=== PATIENT | female | born 1965 | race African-American/Black ===

== ENCOUNTER 2020-10-31 10:27 | Inpatient (IN) | payer MEDICARE, OTHER ==
[~2020-10-31] VITALS: Ht 172.7 cm; Wt 113.4 kg
[2020-10-31] MEDS ORDERED: ASPIRIN 325 MG TAB PO ONE (11:00)
[2020-10-31 11:05] LABS: BASOPHILS % 0.4 % (0.0-1.0); EOSINOPHILS # (AUTO) 0.1 (0.0-0.4); EOSINOPHILS % 1.4 % (0.0-6.0); HEMATOCRIT 32.2 % (34.2-44.1); HEMOGLOBIN 9.6 g/dL (12.0-16.0); LYMPHOCYTES # (AUTO) 1.7 (1.0-3.2); LYMPHOCYTES % 22.8 % (18.0-39.1); MEAN CORPUSCULAR HEMOGLOBIN 24.7 pg (28-32); MEAN CORPUSCULAR HGB CONC 29.8 g/dL (31-35); MONOCYTES # (AUTO) 0.6 (0.2-0.8); MONOCYTES % 7.3 % (4.4-11.3); NEUTROPHILS # (AUTO) 5.2 (2.1-6.9); NEUTROPHILS % 67.6 % (38.7-80.0); PLATELET COUNT 345 x10e3/uL (140-360); RED BLOOD COUNT 3.88 x10e6/uL (3.6-5.1); RED CELL DISTRIBUTION WIDTH 15.9 % (11.7-14.4)
[2020-10-31 11:25] LABS: INR 0.92; PROTHROMBIN TIME 12.9 seconds (11.9-14.5)
[2020-10-31 11:40] LABS: ALBUMIN 3.1 g/dL (3.5-5.0); ALBUMIN/GLOBULIN RATIO 0.7 (0.8-2.0); ANION GAP 16.7 mmol/L (8-16); CALCIUM 8.9 mg/dL (8.4-10.2); CREATININE, SERUM 1.54 mg/dL (0.57-1.11); POTASSIUM 4.7 mmol/L (3.5-5.1)
[2020-10-31] MEDS ORDERED: IOPAMIDOL 370 MG/ML 200 ML INFUS..BTL INJ ONE (11:46)
[2020-10-31] MEDS ORDERED: SODIUM CHLORIDE 0.9% 100 ML ONE (11:46)
[2020-10-31] MEDS ORDERED: INSULIN REGULAR, HUMAN 100 UNIT/1 ML 3ML VIAL SQ ONE (14:15)
[2020-10-31] MEDS ORDERED: ASPIRIN 81 MG CHEW TAB ONE (14:30)
[2020-10-31 15:00] VITALS: BP_SYST 145; BP_SYST 148; BP_DIAS 59; BP_DIAS 84
[2020-10-31 15:55] VITALS: BP 144/80
[2020-10-31] MEDS ORDERED: ASPIRIN 81 MG CHEW TAB PO ONE (16:20)
[2020-10-31] MEDS ORDERED: DEXTROSE 50% SYRINGE 50 ML IV PRN (17:15)
[2020-10-31] MEDS ORDERED: MILK OF MA2400 MG/10 PO (19:11)
[2020-10-31] MEDS ORDERED: SENNA LAX8.6 MG PO (19:11)
[2020-10-31] MEDS ORDERED: ANTACID SUSPEN PO (19:11)
[2020-10-31] MEDS ORDERED: ALOGLIPTIN25 MG PO (19:11)
[2020-10-31] MEDS ORDERED: DOCUSATE SODIU100 MG PO (19:11)
[2020-10-31] MEDS ORDERED: RISPERIDONE1 MG PO ×2 (19:11)
[2020-10-31] MEDS ORDERED: LANTUS 3ML100 UNITS/ SC ×2 (19:11)
[2020-10-31] MEDS ORDERED: METFORMIN HCL500 MG PO (19:11)
[2020-10-31] MEDS ORDERED: BENZTROPINE MESY1 MG PO (19:11)
[2020-10-31] MEDS ORDERED: ZYPREXA10 MG PO (19:11)
[2020-10-31] MEDS ORDERED: TRICOR145 MG PO (19:11)
[2020-10-31] MEDS ORDERED: LEVSIN0.125 MG PO (19:11)
[2020-10-31] MEDS ORDERED: HYDRALAZINE HCL25 MG PO (19:11)
[2020-10-31] MEDS ORDERED: DULCOLAX10 MG PR (19:11)
[2020-10-31] MEDS ORDERED: ASPIRIN325 MG PO (19:11)
[2020-10-31] MEDS ORDERED: LEVOTHYROXINE50 MCG PO (19:11)
[2020-10-31] MEDS ORDERED: OMEPRAZOLE40 MG PO (19:11)
[2020-10-31] MEDS ORDERED: ZYPREXA5 MG PO (19:11)
[2020-10-31] MEDS ORDERED: MELATONIN3 MG PO (19:11)
[2020-10-31] MEDS ORDERED: TRAZODONE HCL100 MG PO (19:11)
[2020-10-31] MEDS ORDERED: GABAPENTIN300 MG PO (19:11)
[2020-10-31] MEDS ORDERED: ISOSORBIDE MONO30 MG PO (19:11)
[2020-10-31] MEDS ORDERED: SENNA8.6 MG PO (19:11)
[2020-10-31] MEDS ORDERED: ATORVASTATIN CA10 MG PO (19:11)
[2020-10-31] MEDS ORDERED: INSULIN LI100 UNIT/1 SC (19:11)
[2020-10-31] MEDS ORDERED: METOPROLOL TART50 MG PO (19:11)
[2020-10-31] MEDS ORDERED: LITHOBID300 MG PO (19:11)
[2020-10-31 20:00] VITALS: BP 150/66
[2020-10-31 20:06] LABS: CHOL/HDL RATIO 4.6 (3.0-3.6)
[2020-10-31 20:55] VITALS: BP 150/66
[2020-10-31] MEDS: INSULIN REGULAR, HUMAN 100 UNIT/1 ML 3ML VIAL SQ SCH (21:00)
[2020-10-31] MEDS: ATORVASTATIN 40 MG TAB PO SCH (21:00)
[2020-11-01] VITALS (10 sets, daily range): BP systolic 115–159; BP diastolic 61–80
[2020-11-01 05:28] LABS: BASOPHILS % 0.5 % (0.0-1.0); EOSINOPHILS # (AUTO) 0.1 (0.0-0.4); HEMATOCRIT 29.9 % (34.2-44.1); HEMOGLOBIN 8.9 g/dL (12.0-16.0); LYMPHOCYTES # (AUTO) 1.6 (1.0-3.2); LYMPHOCYTES % 25.7 % (18.0-39.1); MEAN CORPUSCULAR HEMOGLOBIN 25.3 pg (28-32); MEAN CORPUSCULAR HGB CONC 29.8 g/dL (31-35); MEAN CORPUSCULAR VOLUME 84.9 fL (81-99); MONOCYTES # (AUTO) 0.4 (0.2-0.8); MONOCYTES % 6.8 % (4.4-11.3); NEUTROPHILS # (AUTO) 3.9 (2.1-6.9); NEUTROPHILS % 64.5 % (38.7-80.0); PLATELET COUNT 260 x10e3/uL (140-360); RED BLOOD COUNT 3.52 x10e6/uL (3.6-5.1); RED CELL DISTRIBUTION WIDTH 15.9 % (11.7-14.4)
[2020-11-01 05:54] LABS: ANION GAP 14.4 mmol/L (8-16); CALCIUM 9.5 mg/dL (8.4-10.2); CREATININE, SERUM 1.64 mg/dL (0.57-1.11); POTASSIUM 4.4 mmol/L (3.5-5.1)
[2020-11-01] MEDS ORDERED: BISACODYL 10 MG SUPP PR PRN (07:30)
[2020-11-01] MEDS ORDERED: MAGNESIUM/ALUMINUM/SIMETHICONE 30 ML UDC PO SCH (07:30)
[2020-11-01] MEDS: INSULIN REGULAR, HUMAN 100 UNIT/1 ML 3ML VIAL SQ SCH ×4 (07:30→21:42)
[2020-11-01] MEDS ORDERED: HYOSCYAMINE 0.125 MG TAB PO PRN (07:30)
[2020-11-01] MEDS ORDERED: HYDRALAZINE HCL 25 MG TAB PO PRN (07:30)
[2020-11-01] MEDS ORDERED: MAGNESIUM HYDROXIDE 30 ML UDC PO PRN (07:30)
[2020-11-01] MEDS: ALOGLIPTIN BENZOATE 25 MG PO SCH (09:00)
[2020-11-01] MEDS ORDERED: LITHIUM CARBONATE ER 300 MG TAB PO SCH (09:00)
[2020-11-01] MEDS: ASPIRIN 325 MG TAB PO SCH (10:53)
[2020-11-01] MEDS: ISOSORBIDE MONONITRATE 30 MG TAB CR PO SCH (10:54)
[2020-11-01] MEDS: DOCUSATE SODIUM 100 MG CAP PO SCH (10:54)
[2020-11-01] MEDS: PANTOPRAZOLE SOD 40 MG TABEC PO SCH (10:54)
[2020-11-01] MEDS: INSULIN GLARGINE 100 UNITS/ML VIAL SQ SCH (10:54)
[2020-11-01] MEDS: FENOFIBRATE 145 MG TAB PO SCH (10:54)
[2020-11-01] MEDS: METOPROLOL TARTRATE 50 MG TAB PO SCH ×2 (10:54→16:56)
[2020-11-01] MEDS: OLANZAPINE 5 MG TAB PO SCH (10:54)
[2020-11-01] MEDS: MAGNESIUM/ALUMINUM/SIMETHICONE 30 ML UDC PO SCH ×3 (10:55→21:34)
[2020-11-01] MEDS: RISPERIDONE 1 MG TAB PO SCH (11:38)
[2020-11-01] MEDS: BENZTROPINE MESYLATE 1 MG TAB PO SCH ×2 (11:38→16:55)
[2020-11-01] MEDS: LITHIUM CARBONATE ER 300 MG TAB PO SCH ×2 (12:56→21:33)
[2020-11-01] MEDS ORDERED: MELATONIN 3 MG TAB PO SCH (21:00)
[2020-11-01] MEDS ORDERED: INSULIN GLARGINE 100 UNITS/ML VIAL SQ SCH (21:00)
[2020-11-01] MEDS ORDERED: ATORVASTATIN 10 MG TAB PO SCH (21:00)
[2020-11-01] MEDS ORDERED: SENNOSIDES 8.6 MG TAB PO SCH (21:00)
[2020-11-01] MEDS ORDERED: RISPERIDONE 1 MG TAB PO SCH (21:00)
[2020-11-01] MEDS ORDERED: GABAPENTIN 300 MG CAP PO SCH (21:00)
[2020-11-01] MEDS ORDERED: TRAZODONE HCL 50 MG TAB PO SCH (21:00)
[2020-11-01] MEDS ORDERED: OLANZAPINE 5 MG TAB PO SCH (21:00)
[2020-11-01] MEDS: ATORVASTATIN 40 MG TAB PO SCH (21:33)
[2020-11-02] MEDS ORDERED: LEVOTHYROXINE SODIUM 25 MCG TABLET PO SCH (06:00)
[2020-11-02] MEDS: INSULIN REGULAR, HUMAN 100 UNIT/1 ML 3ML VIAL SQ SCH ×3 (07:30→16:28)
[2020-11-02 07:53] VITALS: BP 140/69
[2020-11-02 08:30] VITALS: BP 140/69
[2020-11-02] MEDS: MAGNESIUM/ALUMINUM/SIMETHICONE 30 ML UDC PO SCH ×3 (08:30→16:28)
[2020-11-02] MEDS: METOPROLOL TARTRATE 50 MG TAB PO SCH ×2 (09:00→17:23)
[2020-11-02] MEDS: ALOGLIPTIN BENZOATE 25 MG PO SCH (09:00)
[2020-11-02] MEDS: LITHIUM CARBONATE ER 300 MG TAB PO SCH (09:00)
[2020-11-02] MEDS: FENOFIBRATE 145 MG TAB PO SCH (09:00)
[2020-11-02] MEDS: BENZTROPINE MESYLATE 1 MG TAB PO SCH ×2 (09:00→17:22)
[2020-11-02] MEDS: ASPIRIN 325 MG TAB PO SCH (09:00)
[2020-11-02] MEDS: ISOSORBIDE MONONITRATE 30 MG TAB CR PO SCH (09:00)
[2020-11-02] MEDS: DOCUSATE SODIUM 100 MG CAP PO SCH (09:00)
[2020-11-02] MEDS: PANTOPRAZOLE SOD 40 MG TABEC PO SCH (09:00)
[2020-11-02] MEDS: OLANZAPINE 5 MG TAB PO SCH (09:00)
[2020-11-02] MEDS: RISPERIDONE 1 MG TAB PO SCH (09:00)
[2020-11-02] MEDS: INSULIN GLARGINE 100 UNITS/ML VIAL SQ SCH (09:00)
[2020-11-02 11:44] VITALS: BP 153/99
[2020-11-02] MEDS: METFORMIN HCL 500 MG TAB PO SCH ×2 (12:00→17:22)
[2020-11-02 16:34] VITALS: BP 124/65
== END 2020-11-02 17:33 | DRG 74 ==
LOC: ER 10:55 → ERHOLD 13:26 → MED/SURG3 14:30
DX: G51.0 Bell's palsy (principal); I13.0 Hypertensive heart and chronic kidney disease with heart failure and stage 1 through stage 4 chronic kidney disease, or unspecified chronic kidney disease; E66.01 Morbid (severe) obesity due to excess calories; Z68.38 Body mass index [BMI] 38.0-38.9, adult; E78.5 Hyperlipidemia, unspecified; E03.9 Hypothyroidism, unspecified; F25.9 Schizoaffective disorder, unspecified; G20 Parkinson's disease; E11.22 Type 2 diabetes mellitus with diabetic chronic kidney disease; N18.30 Chronic kidney disease, stage 3 unspecified; I50.9 Heart failure, unspecified; D64.9 Anemia, unspecified; Z20.822 Contact with and (suspected) exposure to COVID-19
CPT/HCPCS: 36415; 70450; 70496; 70498; 70551; 80048; 80053; 80061; 82948; 83036; 83090; 84484; 85025; 85610; 85651; 93005; 93306; 99251; 99285; J1815; J1817; J7050; Q9967; U0002

== ENCOUNTER 2021-12-27 11:33 | Emergency (ER) | payer MEDICARE, OTHER ==
[~2021-12-27] VITALS: Ht 172.7 cm; Wt 113.4 kg
[~2021-12-27 11:33] MED LIST: ALOGLIPTIN25 MG PO; ANTACID SUSPEN PO; ASPIRIN325 MG PO; ATORVASTATIN CA10 MG PO; BENZTROPINE MESY1 MG PO; DOCUSATE SODIU100 MG PO; DULCOLAX10 MG PR; GABAPENTIN300 MG PO; HYDRALAZINE HCL25 MG PO; INSULIN LI100 UNIT/1 SC; ISOSORBIDE MONO30 MG PO; LANTUS 3ML100 UNITS/ SC; LEVOTHYROXINE50 MCG PO; LEVSIN0.125 MG PO; LITHOBID300 MG PO; MELATONIN3 MG PO; METFORMIN HCL500 MG PO; METOPROLOL TART50 MG PO; MILK OF MA2400 MG/10 PO; OMEPRAZOLE40 MG PO; RISPERIDONE1 MG PO; SENNA LAX8.6 MG PO; SENNA8.6 MG PO; TRAZODONE HCL100 MG PO; TRICOR145 MG PO; ZYPREXA10 MG PO; ZYPREXA5 MG PO
[2021-12-27] MEDS ORDERED: ACETAMINOPHEN 325 MG TAB PO ONE (14:30)
== END 2021-12-27 15:50 ==
LOC: ER 11:39
DX: S00.83XA Contusion of other part of head, initial encounter (principal); W07.XXXA Fall from chair, initial encounter; Y92.89 Other specified places as the place of occurrence of the external cause; G20 Parkinson's disease; I10 Essential (primary) hypertension; F25.1 Schizoaffective disorder, depressive type; E11.9 Type 2 diabetes mellitus without complications; I50.9 Heart failure, unspecified; E78.5 Hyperlipidemia, unspecified; E03.9 Hypothyroidism, unspecified; K21.9 Gastro-esophageal reflux disease without esophagitis; E66.9 Obesity, unspecified
CPT/HCPCS: 70450; 71045; 72125; 72170; 99284

== ENCOUNTER 2022-06-27 01:52 | Inpatient (IN) | payer MEDICARE, OTHER ==
[~2022-06-27] VITALS: Ht 172.7 cm; Wt 113.4 kg
[2022-06-27] VITALS (8 sets, daily range): BP systolic 117–160; BP diastolic 56–94
[2022-06-27 02:30] LABS: BASOPHILS % 0.4 % (0.0-1.0); EOSINOPHILS # (AUTO) 0.1 (0.0-0.4); EOSINOPHILS % 0.8 % (0.0-6.0); HEMATOCRIT 32.8 % (34.2-44.1); HEMOGLOBIN 9.6 g/dL (12.0-16.0); LYMPHOCYTES # (AUTO) 2.9 (1.0-3.2); MEAN CORPUSCULAR HEMOGLOBIN 25.9 pg (28-32); MEAN CORPUSCULAR HGB CONC 29.3 g/dL (31-35); MEAN CORPUSCULAR VOLUME 88.6 fL (81-99); MONOCYTES # (AUTO) 0.4 (0.2-0.8); MONOCYTES % 5.9 % (4.4-11.3); NEUTROPHILS # (AUTO) 3.9 (2.1-6.9); NEUTROPHILS % 53.5 % (38.7-80.0); PLATELET COUNT 311 x10e3/uL (140-360); RED CELL DISTRIBUTION WIDTH 15.9 % (11.7-14.4)
[2022-06-27 02:33] LABS: CLARITY,URINE SL CLOUDY (CLEAR); COLOR,URINE YELLOW (YELLOW); KETONES,URINE NEGATIVE (NEGATIVE); LEUKOCYTE ESTERASE ,URINE SMALL (NEGATIVE); NITRITE,URINE NEGATIVE (NEGATIVE); PROTEIN,URINE DIPSTICK NEGATIVE (NEGATIVE); URINE UROBILINOGEN 0.2 mg/dL (0.2 - 1)
[2022-06-27 02:38] LABS: BACTERIA,URINE FEW /HPF; EPITHELIAL CELLS,URINE FEW /LPF; RBC,URINE 0-5 /HPF (0-5); WBC,URINE (MAN) 21-50 /HPF (0-5)
[2022-06-27 02:50] LABS: ALBUMIN 3.3 g/dL (3.5-5.0); ALBUMIN/GLOBULIN RATIO 0.7 (0.8-2.0); ANION GAP 16.8 mmol/L (8-16); CALCIUM 9.3 mg/dL (8.4-10.2); CREATININE, SERUM 2.17 mg/dL (0.57-1.11); POTASSIUM 3.8 mmol/L (3.5-5.1)
[2022-06-27 02:57] LABS: CREATINE KINASE MB 7.7 ng/mL (0-5.0)
[2022-06-27] MEDS ORDERED: SODIUM CHLORIDE 0.9% 1000ML 1,000 ML IV STA (03:01)
[2022-06-27 03:26] LABS: ABG HCO3 27 mmol/L (22-26); ABG PCO2 39 mmHg (35-45); ABG PH 7.45 (7.35-7.45); ABG PO2 152 mmHg (80-105); ABG TCO2 28
[2022-06-27] MEDS ORDERED: Morphine 2mg Syringe 2 MG/ML SYR IV PRN (04:00)
[2022-06-27] MEDS ORDERED: ONDANSETRON HCL INJ 2MG/ML 2ML 2 MG/ML VIAL IV PRN (04:00)
[2022-06-27] MEDS ORDERED: DEXTROSE 50% SYRINGE 50 ML IV PRN (04:45)
[2022-06-27] MEDS: LORAZEPAM INJ 2 MG/ML VIAL IV PRN ×2 (05:33→21:41)
[2022-06-27] MEDS: SODIUM CHLORIDE 0.9% 1000ML 1,000 ML IV SCH ×3 (05:34→21:48)
[2022-06-27] MEDS: INSULIN REGULAR, HUMAN 100 UNIT/1 ML SQ SCH ×4 (09:29→21:00)
[2022-06-27] MEDS: DOCUSATE SODIUM 100 MG CAP PO SCH (09:33)
[2022-06-27] MEDS: SENNOSIDES 8.6 MG TAB PO SCH (09:33)
[2022-06-27 14:10] LABS: INR 1.03; PARTIAL THROMBOPLASTIN TIME 29.9 seconds (23.8-35.5); PROTHROMBIN TIME 13.7 seconds (11.9-14.5)
[2022-06-27 14:15] LABS: MAGNESIUM 1.7 MG/DL (1.3-2.1)
[2022-06-27 14:25] LABS: CREATINE KINASE MB 4.1 ng/mL (0-5.0)
[2022-06-27 14:37] LABS: FERRITIN 73.66 ng/mL (4.63-204.00); THYROID STIMULATING HORMONE 1.403 uIU/mL (0.350-4.940)
[2022-06-27] MEDS: HEPARIN SOD (PORCINE) 5,000 UNIT/ML VIAL SC SCH ×2 (16:29→23:41)
[2022-06-28] VITALS (8 sets, daily range): BP systolic 115–146; BP diastolic 66–78
[2022-06-28] MEDS ORDERED: ACETAMINOPHEN 325 MG TAB PO PRN (00:15)
[2022-06-28] MEDS ORDERED: CEFTRIAXONE 1 GM VIAL IM ONE (00:15)
[2022-06-28] MEDS: SODIUM CHLORIDE 0.9% 1000ML 1,000 ML IV SCH ×3 (06:42→21:04)
[2022-06-28] MEDS: HEPARIN SOD (PORCINE) 5,000 UNIT/ML VIAL SC SCH ×3 (06:48→21:28)
[2022-06-28] MEDS: INSULIN REGULAR, HUMAN 100 UNIT/1 ML SQ SCH ×4 (07:30→21:14)
[2022-06-28] MEDS: LORAZEPAM INJ 2 MG/ML VIAL IV PRN (08:53)
[2022-06-28] MEDS: DOCUSATE SODIUM 100 MG CAP PO SCH (08:54)
[2022-06-28] MEDS: CYANOCOBALAMIN INJ 1,000 MCG/ML VIAL IM SCH (08:54)
[2022-06-28] MEDS: FOLIC ACID 1 MG TAB PO SCH (08:54)
[2022-06-28] MEDS: SENNOSIDES 8.6 MG TAB PO SCH (08:54)
[2022-06-28] MEDS ORDERED: BISACODYL 10 MG SUPP PR PRN (09:00)
[2022-06-28] MEDS ORDERED: HYOSCYAMINE 0.125 MG TAB PO PRN (09:00)
[2022-06-28] MEDS ORDERED: HALOPERIDOL 5 MG TAB PO PRN (09:30)
[2022-06-28] MEDS: INSULIN GLARGINE 100 UNITS/ML VIAL SQ SCH ×2 (10:00→21:16)
[2022-06-28] MEDS: ISOSORBIDE MONONITRATE 30 MG TAB CR PO SCH (10:19)
[2022-06-28] MEDS: RISPERIDONE 1 MG TAB PO SCH ×2 (10:19→21:24)
[2022-06-28] MEDS: FENOFIBRATE 145 MG TAB PO SCH (10:19)
[2022-06-28] MEDS: OLANZAPINE 5 MG TAB PO SCH ×2 (10:20→21:05)
[2022-06-28] MEDS: ASPIRIN 325 MG TAB PO SCH (10:20)
[2022-06-28] MEDS: METOPROLOL TARTRATE 50 MG TAB PO SCH ×2 (10:20→16:33)
[2022-06-28] MEDS: PANTOPRAZOLE SOD 40 MG TABEC PO SCH (10:22)
[2022-06-28] MEDS ORDERED: ONDANSETRON HCL 4 MG ORAL DISINTEGRATING TAB PO PRN (13:45)
[2022-06-28] MEDS: GABAPENTIN 300 MG CAP PO SCH (21:05)
[2022-06-28] MEDS: ATORVASTATIN 10 MG TAB PO SCH (21:05)
[2022-06-28] MEDS: MELATONIN 3 MG TAB PO SCH (21:05)
[2022-06-28] MEDS: TRAZODONE HCL 50 MG TAB PO SCH (21:24)
[2022-06-29] VITALS (8 sets, daily range): BP systolic 106–152; BP diastolic 56–91
[2022-06-29] MEDS ORDERED: LEVOTHYROXINE SODIUM 25 MCG TABLET PO SCH (06:00)
[2022-06-29] MEDS: SODIUM CHLORIDE 0.9% 1000ML 1,000 ML IV SCH (06:28)
[2022-06-29] MEDS: HEPARIN SOD (PORCINE) 5,000 UNIT/ML VIAL SC SCH ×2 (06:29→13:35)
[2022-06-29] MEDS ORDERED: COLLAGENASE 5 GM TUBE TP SCH (09:00)
[2022-06-29] MEDS: SENNOSIDES 8.6 MG TAB PO SCH (10:22)
[2022-06-29] MEDS: FENOFIBRATE 145 MG TAB PO SCH (10:22)
[2022-06-29] MEDS: DOCUSATE SODIUM 100 MG CAP PO SCH (10:22)
[2022-06-29] MEDS: OLANZAPINE 5 MG TAB PO SCH ×2 (10:23→20:53)
[2022-06-29] MEDS: ISOSORBIDE MONONITRATE 30 MG TAB CR PO SCH (10:23)
[2022-06-29] MEDS: CYANOCOBALAMIN INJ 1,000 MCG/ML VIAL IM SCH (10:24)
[2022-06-29] MEDS: ASPIRIN 325 MG TAB PO SCH (10:24)
[2022-06-29] MEDS: METOPROLOL TARTRATE 50 MG TAB PO SCH ×2 (10:24→17:47)
[2022-06-29] MEDS: RISPERIDONE 1 MG TAB PO SCH ×2 (10:24→20:52)
[2022-06-29] MEDS: FOLIC ACID 1 MG TAB PO SCH (10:24)
[2022-06-29] MEDS: PANTOPRAZOLE SOD 40 MG TABEC PO SCH (10:27)
[2022-06-29] MEDS: INSULIN REGULAR, HUMAN 100 UNIT/1 ML SQ SCH ×4 (10:28→20:57)
[2022-06-29] MEDS: INSULIN GLARGINE 100 UNITS/ML VIAL SQ SCH ×2 (10:29→20:57)
[2022-06-29] MEDS ORDERED: BACTRIM DS TAB1 EACH PO (15:48)
[2022-06-29] MEDS: ATORVASTATIN 10 MG TAB PO SCH (20:51)
[2022-06-29] MEDS: MELATONIN 3 MG TAB PO SCH (20:53)
[2022-06-29] MEDS: TRAZODONE HCL 50 MG TAB PO SCH (20:53)
[2022-06-29] MEDS: GABAPENTIN 300 MG CAP PO SCH (20:54)
== END 2022-06-29 21:23 | DRG 690 ==
LOC: ER 02:11 → ERHOLD 03:51 → MED/SURG3 04:30
PROVIDERS: ADMIT Internal Medicine; ATTEND Internal Medicine
DX: N39.0 Urinary tract infection, site not specified (principal); I13.0 Hypertensive heart and chronic kidney disease with heart failure and stage 1 through stage 4 chronic kidney disease, or unspecified chronic kidney disease; M62.82 Rhabdomyolysis; N17.9 Acute kidney failure, unspecified; I50.32 Chronic diastolic (congestive) heart failure; Z16.24 Resistance to multiple antibiotics; F03.92 Unspecified dementia, unspecified severity, with psychotic disturbance; F05 Delirium due to known physiological condition; E11.65 Type 2 diabetes mellitus with hyperglycemia; E03.9 Hypothyroidism, unspecified; E78.2 Mixed hyperlipidemia; E11.69 Type 2 diabetes mellitus with other specified complication; G20 Parkinson's disease; E11.22 Type 2 diabetes mellitus with diabetic chronic kidney disease; Z79.4 Long term (current) use of insulin; E66.01 Morbid (severe) obesity due to excess calories; Z68.38 Body mass index [BMI] 38.0-38.9, adult; F25.9 Schizoaffective disorder, unspecified; B96.20 Unspecified Escherichia coli [E. coli] as the cause of diseases classified elsewhere; Z20.822 Contact with and (suspected) exposure to COVID-19; N18.32 Chronic kidney disease, stage 3b
CPT/HCPCS: 36415; 36600; 70450; 71045; 80053; 81001; 82140; 82550; 82553; 82607; 82728; 82746; 82805; 82948; 83036; 83540; 83690; 83735; 84439; 84443; 84466; 84484; 85025; 85610; 85730; 86592; 87040; 87086; 87186; 93005; 97139; 99252; 99285; J0456; J0696; J1644; J1815; J1817; J2060; J3420; J7030; J7050